=== PATIENT | male | born 1955 | race Caucasian/White ===

== ENCOUNTER 2022-01-19 06:27 | Day surgery (SDC) | payer MEDICARE ==
[2022-01-17 10:23] LABS: BASOPHILS % (AUTO) 0.8 % (0.0-5.0); EOSINOPHILS % (AUTO) 4.3 % (0.0-8.0); HEMATOCRIT 47.8 % (42-54); LYMPHOCYTES % (AUTO) 16.2 % (21.0-51.0); MEAN CORPUSCULAR HEMOGLOBIN 28.2 pg (27.0-33.0); MEAN CORPUSCULAR HGB CONC 31.6 g/dL (32.0-36.0); MEAN CORPUSCULAR VOLUME 89.3 fL (79-99); MONOCYTES % (AUTO) 8.9 % (3.0-13.0); NEUTROPHILS % (AUTO) 69.4 % (40.0-77.0); PLATELET COUNT (AUTO) 261 K/uL (130-400); RED BLOOD CELL COUNT(AUTO) 5.35 MIL/uL (4.50-6.20); RED CELL DISTRIBUTION WIDTH 13.9 % (11.0-15.5); WHITE BLOOD COUNT (AUTO) 9.8 K/uL (4.8-10.8)
[2022-01-17 10:33] LABS: POTASSIUM 5.3 mmol/L (3.5-5.1)
[2022-01-18 09:41] VITALS: BP 124/73
[2022-01-19] VITALS (13 sets, daily range): BP systolic 109–136; BP diastolic 55–81
[~2022-01-19] VITALS: Ht 182.9 cm; Wt 91.9 kg
[2022-01-19] MEDS: CEFAZOLIN SODIUM 1 GM VIAL IVP SCH ×2 (06:00→08:50)
[~2022-01-19 06:27] MED LIST: IBUP-2070 PO; MULT-1289 PO
[2022-01-19] MEDS ORDERED: LACTATED RINGERS 1000ML 1,000 ML IV ONE ×2 (06:52→07:10)
[2022-01-19] MEDS ORDERED: IOPAMIDOL 10 ML VIAL ONE (07:30)
[2022-01-19] MEDS ORDERED: BUPIVACAINE/PF 0.25% 30ML VIAL IJ ONE (08:05)
[2022-01-19] MEDS ORDERED: FENTANYL CITRATE PF 50 MCG/1 ML 2ML VIAL ONE (08:46)
[2022-01-19] MEDS ORDERED: MIDAZOLAM HCL 1 MG/ML 2ML VIAL ONE (08:47)
[2022-01-19] MEDS ORDERED: PROPOFOL 10 MG/ML 20ML VIAL IV ONE (08:50)
== END 2022-01-19 10:30 | disposition home or self-care (01) ==
LOC: DAH 06:27
PROVIDERS: ATTEND Orthopaedic Surgery
DX: M16.12 Unilateral primary osteoarthritis, left hip (principal); G89.29 Other chronic pain; Z79.899 Other long term (current) drug therapy; Z20.822 Contact with and (suspected) exposure to COVID-19
CPT/HCPCS: 20610; 36415; 73503; 77002; 80048; 85025; 87635; A4215; A4221; A4222; A4223; A4663; A5120; C9803; J0690; J1030; J2250; J2704; J3010; J3490; J7120 ×2; Q9966

== ENCOUNTER 2022-04-28 05:34 | Day surgery (SDC) | payer MEDICARE ==
[2022-04-27 10:49] LABS: BASOPHILS % (AUTO) 1.5 % (0.0-5.0); EOSINOPHILS % (AUTO) 7.1 % (0.0-8.0); HEMATOCRIT 44.4 % (42-54); LYMPHOCYTES % (AUTO) 28.8 % (21.0-51.0); MEAN CORPUSCULAR HEMOGLOBIN 28.8 pg (27.0-33.0); MEAN CORPUSCULAR HGB CONC 32.2 g/dL (32.0-36.0); MEAN CORPUSCULAR VOLUME 89.5 fL (79-99); MONOCYTES % (AUTO) 10.5 % (3.0-13.0); NEUTROPHILS % (AUTO) 51.7 % (40.0-77.0); PLATELET COUNT (AUTO) 253 K/uL (130-400); RED BLOOD CELL COUNT(AUTO) 4.96 MIL/uL (4.50-6.20); RED CELL DISTRIBUTION WIDTH 13.9 % (11.0-15.5); WHITE BLOOD COUNT (AUTO) 5.4 K/uL (4.8-10.8)
[2022-04-27 10:55] LABS: CARBON DIOXIDE 31 mmol/L (21-32); CHLORIDE 100 mmol/L (101-111); GLOMERULAR FILTR. RATE CALC 79 mL/min (>60); GLUCOSE,RANDOM 86 mg/dL (70-105); POTASSIUM 4.3 mmol/L (3.5-5.1); SODIUM SERUM 136 mmol/L (136-145); UREA NITROGEN, BLOOD 19 mg/dL (7-18)
[2022-04-27 10:58] LABS: CRP QUANTITATIVE < 2.00 mg/L (0.00-9.0)
[2022-04-27 12:06] VITALS: BP 140/75
[2022-04-28] VITALS (11 sets, daily range): BP systolic 127–141; BP diastolic 62–88
[~2022-04-28] VITALS: Ht 182.9 cm; Wt 93.9 kg
[2022-04-28] MEDS ORDERED: LACTATED RINGERS 1000ML 1,000 ML IV ONE (06:18)
[2022-04-28] MEDS ORDERED: CEFAZOLIN SODIUM 1 GM VIAL ONE (06:19)
[2022-04-28] MEDS ORDERED: MIDAZOLAM HCL 1 MG/ML 2ML VIAL ONE (07:04)
[2022-04-28] MEDS ORDERED: PROPOFOL 10 MG/ML 20ML VIAL IV ONE (07:04)
[2022-04-28] MEDS ORDERED: FENTANYL CITRATE PF 50 MCG/1 ML 2ML VIAL ONE (07:05)
[2022-04-28] MEDS ORDERED: LIDOCAINE HCL 1% 20 ML VIAL ONE (07:06)
[2022-04-28] MEDS ORDERED: BUPIVACAINE/PF 0.5% 30ML VIAL ONE (07:06)
[2022-04-28] MEDS ORDERED: GLYCOPYRROLATE 1 MG/5 ML SYRINGE ONE (07:52)
[2022-04-28] MEDS ORDERED: IOPAMIDOL 10 ML VIAL ONE (07:56)
== END 2022-04-28 09:30 ==
LOC: DAH 05:34
PROVIDERS: ATTEND Student in an Organized Health Care Education/Training Program
DX: M16.12 Unilateral primary osteoarthritis, left hip (principal); G89.29 Other chronic pain; Z79.899 Other long term (current) drug therapy; Z20.822 Contact with and (suspected) exposure to COVID-19
CPT/HCPCS: 87426; 82040; 80048; 85025; 84134; 86140; 36415; 93005; 20610; 77002; 73503; J7120; J3010; J0690; J3490 ×2; J2250; J2704; J1030; Q9966; A5120; A4215; A4223; A4222; A4221; A4663

== ENCOUNTER 2024-09-11 11:00 | Observation (INO) | payer MEDICARE ==
[~2024-09-11] VITALS: Ht 182.9 cm; Wt 92.5 kg
[2024-09-11 12:28] LABS: BASOPHILS # (AUTO) 0.09 K/uL (0.00-0.20); BASOPHILS % (AUTO) 1.5 % (0.0-5.0); EOSINOPHILS # (AUTO) 0.33 K/uL (0.00-0.70); EOSINOPHILS % (AUTO) 5.7 % (0.0-8.0); HEMATOCRIT 46.2 % (42-54); IMMATURE GRANULOCYTE ABSOLUTE 0.01 K/uL (0-1); LYMPHOCYTES # (AUTO) 1.6 K/uL (1.0-4.8); MEAN CORPUSCULAR HEMOGLOBIN 29.4 pg (27.0-33.0); MEAN CORPUSCULAR VOLUME 91.7 fL (79-99); MONOCYTES # (AUTO) 0.5 K/uL (0.1-1.0); NEUTROPHILS # (AUTO) 3.3 K/uL (1.8-7.7); NEUTROPHILS % (AUTO) 56.6 % (40.0-77.0); PLATELET COUNT (AUTO) 241 K/uL (130-400); RED BLOOD CELL COUNT(AUTO) 5.04 MIL/uL (4.50-6.20); RED CELL DISTRIBUTION WIDTH 13.5 % (11.0-15.5); WHITE BLOOD COUNT (AUTO) 5.8 K/uL (4.8-10.8)
[2024-09-11 12:35] LABS: POTASSIUM 5.1 mmol/L (3.5-5.1)
[2024-09-11 12:39] LABS: INR <= 0.93 (0.85-1.15); PROTHROMBIN TIME 10.3 SEC (9.6-11.6)
[2024-09-11 12:40] LABS: PARTIAL THROMBOPLASTIN TIME 28.4 SEC (26.3-35.5)
[2024-09-11 12:41] VITALS: BP 164/81; PULSE 60; RESP 16; TEMP 97.2
[2024-09-11] MEDS ORDERED: advil PO (12:42)
[2024-09-16] VITALS (25 sets, daily range): BP systolic 71–139; BP diastolic 37–82; PULSE 60–91; RESP 15–19; TEMP 96.4–98.4; O2SAT 95
[2024-09-16] MEDS: ceFAZolin SODIUM 2 GM VIAL ONE (10:03)
[2024-09-16] MEDS: LACTATED RINGERS 1000ML 1,000 ML IV ONE (10:03)
[2024-09-16] MEDS: VANCOMYCIN 500MG VIAL IJ SCH (12:00)
[2024-09-16] MEDS ORDERED: LIDOCAINE HCL-MPF 1% 5ML AMP IJ ONE (12:11)
[2024-09-16] MEDS ORDERED: proPOFol 10 MG/ML 20ML VIAL IV ONE (12:12)
[2024-09-16] MEDS ORDERED: MIDAZOLAM HCL 1 MG/ML 2ML VIAL ONE (12:12)
[2024-09-16] MEDS ORDERED: FENTanyl CITRate PF 50 MCG/1 ML 2ML VIAL ONE ×2 (12:12→13:35)
[2024-09-16] MEDS ORDERED: rocuRONium bROMide 10MG/1ML 5ML VL ONE (12:12)
[2024-09-16] MEDS ORDERED: NEOSTIGMINE METHYLSULFATE 1MG/ML IV ONE (12:14)
[2024-09-16] MEDS ORDERED: dexaMETHasone SOD PHOSPHATE 4 MG/ML 1ML VIAL ONE (12:14)
[2024-09-16] MEDS ORDERED: GLYCOPYRROLATE 0.2 MG/ML 5 ML VIAL ONE (12:14)
[2024-09-16] MEDS ORDERED: phenylEPHRINE HCL 10 MG/ML 1ML VIAL IV ONE (12:14)
[2024-09-16] MEDS ORDERED: ondanSETRON 4MG INJ ONE ×2 (12:15→13:20)
[2024-09-16] MEDS ORDERED: ROPivacaine 0.5% 5MG/ML 30ML ONE (12:16)
[2024-09-16] MEDS: TRANEXAMIC ACID 1000MG/10ML ONE ×2 (12:45→16:36)
[2024-09-16] MEDS ORDERED: ePHEDrine SULFate 50 MG/ML AMPULE ONE (13:26)
[2024-09-16] MEDS: ceFAZolin SODIUM 1 GM VIAL ONE (13:35)
[2024-09-16] MEDS ORDERED: ondanSETRON 4MG INJ IVP PRN (16:00)
[2024-09-16] MEDS ORDERED: traMADol HCL 50 MG TABLET PO PRN (16:00)
[2024-09-16] MEDS ORDERED: PoTASSium chloRIDE 20MEQ/100ML 100 ML IV PRN (16:00)
[2024-09-16] MEDS: 0.9%NACL 1000ML 1,000 ML IV SCH (16:00)
[2024-09-16] MEDS ORDERED: FERROUS FUMARATE 324 MG TABLET PO PRN (16:00)
[2024-09-16] MEDS ORDERED: PoTASSium chl 10% ELIXIR 20MEQ 20 MEQ/15 ML UDCUP PO PRN (16:00)
[2024-09-16] MEDS ORDERED: TEMAZepam 15 MG CAPSULE PO PRN (16:00)
[2024-09-16] MEDS ORDERED: PoTASSium chloRIDE 20MEQ ER 20 MEQ ERTAB PO PRN (16:00)
[2024-09-16] MEDS ORDERED: DiphenhydrAMINE HCL 50 MG/ML VIAL IVP PRN (16:00)
[2024-09-16] MEDS ORDERED: CALCIUM CARB 500MG PO PRN (16:00)
--- NOTE | 2024-09-16 16:11 | HMCIMG ---
HIP UNILAT 4VW LEFT REASON: ORIF LEFT SKYLA, SX. COMPARISON: None TECHNIQUE: Fluoroscopic images of left hip were obtained. FINDINGS: Please see procedure report by referring physician. IMPRESSION: Intraoperative films.
[2024-09-16] MEDS: MEPERIDINE-PF 25 MG/ML SYG ONE (16:44)
--- NOTE | 2024-09-16 17:30 | NUR ---
PATIENT ADMITTED TO UNIT. AWAKE AND ALERT. NO S/S OF DISTRESS NOTED. SX DRESSING IN PLACE AND INTACT. SCD'S APPLIED ORDERED POST OP VITALS INITIATED. PATIENT EDUCATED ON I.S.
--- NOTE | 2024-09-16 19:37 | OP ---
Operative Note: DATE OF PROCEDURE: 09/16/24 SURGEON: SARIAH WIGGINS MD LABORER CHEMICAL PROCESSING: [Karina Beverly CFA] ANESTHESIA: [General anesthesia plus regional block] ANESTHESIOLOGIST/RECEIVING TANK OPERATOR: [Bubba Cleary CRNA] PREOPERATIVE DIAGNOSIS: [Left hip osteoarthritis] POSTOPERATIVE DIAGNOSIS: [Left hip osteoarthritis] IMPLANTS: [BIOMET. Femoral stem taper lock standard offset size 12 mm. Femoral head size 36 mm plus three. Acetabulum G7 size 60 mm. Acetabular liner 36 mm high wall.] PROCEDURE: [Left total hip replacement] ESTIMATED BLOOD LOSS: [300 mL] INDICATIONS: [The patient is a very healthy 69-year-old male with history of pain to the left hip secondary to osteoarthritis. The patient is extremely active and wishes to proceed with a total hip arthroplasty after failing conservative treatment. The patient is brought to the operating room for a left total hip arthroplasty, procedure that he understood as well as the risks involved, benefits and possible complications and agreed signed the consent form] DESCRIPTION OF PROCEDURE: [After adequate general anesthesia was achieved and regional block obtained the patient was placed in the lateral decubitus with the use of the beanbag and hip holders. The left lower extremity was prepped and draped in the usual manner after x-rays taken with the C-arm were used to check the position of the pelvis. After anatomic landmarks were identified we proceeded to make an incision in the skin centered on the greater trochanter and with a slight curve posteriorly followed by dissection of the subcutaneous tissue with the use of the Bovie cautery. The tensor fascia sam and gluteus wes fascia were then opened longitudinally and the fibers of the gluteus muscle were split manually entering into the deep space applying then the Charnley retractor. At this point we proceeded to apply a bone infusion needle into the greater trochanter area and we injected 500 mg of vancomycin in 50 mL of normal saline into the proximal femur. The bone needle was then removed. The posterior border of the gluteus medius was identified and elevated and a curved Hohmann retractor was inserted underneath to be able to expose the gluteus minimus and short external rotators. The interval between the piriformis and gluteus minimus was open with the use of the Bovie cautery and then the rotators and capsule were detached from their femoral neck insertion and retracted posteriorly entering into the hip joint. At this point a marker was applied in the iliac bone just superior to the acetabulum with the use of drill guide to be able to check the offset and the length of the extremity at the level of the trochanter. Once the marker was made this was passed to the back table. We then proceeded to dislocate the hip by flexing the hip and then internally rotating it and after retractors were applied to the base of the femoral neck we proceeded to use the oscillating saw to cut the neck at this level. We then proceeded to use a box osteotome to enter the canal followed by insertion of the canal finder and then we proceeded to broach from size 4 up to above-mentioned size. At this point we removed the last broach and packed the canal for hemostasis and after the retractors were removed we proceeded then to bring the hip into extension. Hohmann retractors were then applied anteriorly and posteriorly to the acetabulum removing then the labrum and foveal tissue. We proceeded to ream the acetabulum medializing it obtaining adequate cortico- cancellous bone. After irrigation was of the acetabulum was completed we proceeded then to apply the final component and x-rays were taken correcting the orientation of the acetabulum to its final position. Then a trial liner was inserted as well as a trial femur and then we proceeded to apply the trial femoral heads reducing the hip and taken x-rays until we identify the adequate size component using the marker to check the length and offset as well as clinically using the shuck test and measuring the leg length. Once we were satisfied we proceeded to remove the components from the femur and the trial liner after dislocating the hip and after copious irrigation of the joint was completed we then proceeded to apply the final liner followed by the insertion of the final femoral stem femoral head. Once the hip was reduced we used a marker once again and the leg length and offset were normal and clinically the patient had normal length, negative shuck test and x-rays reveal adequate leg length compared to the opposite hip. The joint was then copiously irrigated with a diluted Betadine solution followed by irrigation with antibiotic solution with jet lavage once again and we then proceeded to take final x-rays and then to close the wound first with approximation of the capsule with #1 Vicryl simple stitches followed by approximation of the short external rotators with #2 PDS suture passing the sutures through the bone. The Charnley retractor was then removed and the gluteus wes fascia was closed with a #1 Vicryl running stitch and the tensor fascia sam with #1 Vicryl crossed stitches. The subcutaneous tissue was closed with #2 Monocryl inverted stitches and the skin was closed with 3-0 Monocryl subcuticularly. A suction dressing was then applied to the incision and the drapes were then removed the patient being placed in the supine position. Leg length was checked and noted to be adequate. The patient was then transferred to a hospital bed and taken to recovery room for follow-up by anesthesia. There were no complications during the procedure.] SARIAH WIGGINS MD Sep 16, 2024 19:37
[2024-09-16] MEDS: FAMOTIDINE 20MG TAB PO SCH (20:21)
[2024-09-16] MEDS: ceFAZolin SODIUM 2 GM VIAL IVP SCH (20:21)
[2024-09-16] MEDS: ASPIRIN 81 MG EC TAB PO SCH (20:21)
[2024-09-16] MEDS: CeleCOXib 200 MG CAP PO SCH (20:21)
[2024-09-16] MEDS: HYDROcodone/APAP 5/325 1 TAB TABLET PO PRN (20:50)
[2024-09-17 04:00] VITALS: BP 112/68; PULSE 69; RESP 18; TEMP 98
[2024-09-17 04:54] LABS: HEMATOCRIT 37.5 % (42-54); MEAN CORPUSCULAR HEMOGLOBIN 29.4 pg (27.0-33.0); MEAN CORPUSCULAR HGB CONC 32.5 g/dL (32.0-36.0); MEAN CORPUSCULAR VOLUME 90.4 fL (79-99); RED BLOOD CELL COUNT(AUTO) 4.15 MIL/uL (4.50-6.20); RED CELL DISTRIBUTION WIDTH 13.7 % (11.0-15.5)
[2024-09-17 05:07] LABS: POTASSIUM 4.7 mmol/L (3.5-5.1)
[2024-09-17 07:45] VITALS: BP 98/57; PULSE 65; RESP 20; TEMP 97.9
[2024-09-17 08:00] VITALS: O2SAT 100
[2024-09-17] MEDS: polyETHYLene GLYCol 3350 17 GM POWD.PACK PO SCH (08:34)
[2024-09-17] MEDS: ketOROlac 15MG/ML VIAL (15MG/ML) IV PRN (08:41)
--- NOTE | 2024-09-17 09:43 | PN ---
Ortho postop day one. This morning patient is awake alert and oriented he is seated at the bedside in the chair resting comfortably reporting adequate pain control. Vital signs have remained stable. He has been afebrile. Laboratory results reviewed. Noted to have a drop in hemoglobin and hematocrit as expected after total hip arthroplasty. Patient is asymptomatic and we will address per protocol as necessary. Voiding on his own without difficulty. Operative findings discussed with the patient. Instructed on an incentive spirometry and returned demonstration adequate. Dressing is intact. No obvious leg-length discrepancy. The gastrocnemius a soft nontender. Distal neurovascular exam normal. Patient did not ambulate yesterday but is pending ambulation this morning. Patient is anticipating going home with a Home Health. I have discussed with the patient we will depend on his progress with physical therapy today and he agrees. Assessment: Status post left total hip arthroplasty. Asymptomatic acute postoperative blood loss anemia. Plan: Continue with Dr. Booker was total hip arthroplasty protocol and discharge planning. Asymptomatic acute postoperative blood loss anemia addressed with the protocol as necessary Vitals/Labs Vital Signs Date Time Temp Pulse Resp B/P (MAP) Pulse Ox O2 Delivery O2 Flow Rate FiO2 09/17/24 08:00 100 Nasal Cannula* 2 28 09/17/24 07:45 97.9 65 20 98/57 Laboratory Tests 09/17/24 04:36 Medications Current Medications Cefazolin Sodium 2 gm STK-MED ONCE .ROUTE Last administered on 09/16/24at 12:40; Start 09/16/24 at 09:43; Stop 09/16/24 at 09:43; Status DC Lactated Ringer's 1,000 ml @ As Directed STK-MED ONCE IV Last administered on 09/16/24at 10:03; Start 09/16/24 at 09:43; Stop 09/16/24 at 09:43; Status DC Vancomycin HCl 500 mg ONCALL IJ Last administered on 09/16/24at 13:35; Start 09/16/24 at 12:00; Stop 09/16/24 at 16:00; Status DC Cefazolin Sodium 1 gm STK-MED ONCE .ROUTE Last administered on 09/16/24at 13:35; Start 09/16/24 at 11:48; Stop 09/16/24 at 11:48; Status DC Tranexamic Acid 1,000 mg STK-MED ONCE .ROUTE Last administered on 09/16/24at 12:45; Start 09/16/24 at 11:49; Stop 09/16/24 at 11:50; Status DC Lidocaine HCl 5 ml STK-MED ONCE IJ; Start 09/16/24 at 12:11; Stop 09/16/24 at 12:12; Status DC Midazolam HCl 2 mg STK-MED ONCE .ROUTE; Start 09/16/24 at 12:12; Stop 09/16/24 at 12:12; Status DC Propofol 200 mg STK-MED ONCE IV; Start 09/16/24 at 12:12; Stop 09/16/24 at 12:12; Status DC Rocuronium [place] 50 mg STK-MED ONCE .ROUTE; Start 09/16/24 at 12:12; Stop 09/16/24 at 12:12; Status DC Fentanyl Citrate 100 mcg STK-MED ONCE .ROUTE; Start 09/16/24 at 12:12; Stop 09/16/24 at 12:13; Status DC Dexamethasone Sodium Phosphate 4 mg STK-MED ONCE .ROUTE; Start 09/16/24 at 12:14; Stop 09/16/24 at 12:14; Status DC Glycopyrrolate 1 mg STK-MED ONCE .ROUTE; Start 09/16/24 at 12:14; Stop 09/16/24 at 12:14; Status DC Neostigmine Methylsulfate 10 mg STK-MED ONCE IV; Start 09/16/24 at 12:14; Stop 09/16/24 at 12:14; Status DC Phenylephrine HCl 10 mg STK-MED ONCE IV; Start 09/16/24 at 12:14; Stop 09/16/24 at 12:15; Status DC Ondansetron HCl 4 mg STK-MED ONCE .ROUTE; Start 09/16/24 at 12:15; Stop 09/16/24 at 12:15; Status DC Ropivacaine 150 mg STK-MED ONCE .ROUTE; Start 09/16/24 at 12:16; Stop 09/16/24 at 12:16; Status DC Ondansetron HCl 4 mg STK-MED ONCE .ROUTE; Start 09/16/24 at 13:20; Stop 09/16/24 at 13:24; Status DC Ephedrine Sulfate 50 mg STK-MED ONCE .ROUTE; Start 09/16/24 at 13:26; Stop 09/16/24 at 13:26; Status DC Fentanyl Citrate 100 mcg STK-MED ONCE .ROUTE; Start 09/16/24 at 13:35; Stop 09/16/24 at 13:35; Status DC Sodium Chloride 1,000 ml @ 100 mls/hr Q10H IV Last administered on 09/17/24at 04:21; Start 09/16/24 at 16:00; Stop 09/17/24 at 15:59 Polyethylene Glycol 17 gm DAILY PO; Start 09/17/24 at 09:00; Stop 10/17/24 at 08:59 Bisacodyl 10 mg DAILY PRN RC; Start 09/19/24 at 16:00; Stop 10/19/24 at 15:59 Ketorolac Tromethamine 15 mg Q6H PRN IV Last administered on 09/17/24at 08:41; Start 09/16/24 at 16:00; Stop 09/21/24 at 15:59 Famotidine 20 mg BID PO Last administered on 09/17/24at 08:29; Start 09/16/24 at 21:00; Stop 10/16/24 at 20:59 Ferrous Fumarate 324 mg DAILY PRN PO; Start 09/16/24 at 16:00; Stop 10/16/24 at 15:59 Temazepam 15 mg HS PRN PO; Start 09/16/24 at 16:00; Stop 10/16/24 at 15:59 Calcium Carbonate 500 mg Q12H PRN PO; Start 09/16/24 at 16:00; Stop 10/16/24 at 15:59 Diphenhydramine HCl 25 mg Q6H PRN IVP; Start 09/16/24 at 16:00; Stop 10/16/24 at 15:59 Ondansetron HCl 4 mg Q6H PRN IVP; Start 09/16/24 at 16:00; Stop 10/16/24 at 15:59 Cefazolin Sodium 2 gm Q8H IVP Last administered on 09/17/24at 05:53; Start 09/16/24 at 21:00; Stop 09/17/24 at 05:01; Status DC Potassium Chloride 100 ml @ 100 mls/hr AD PRN IV; Start 09/16/24 at 16:00; Stop 10/16/24 at 15:59 Potassium Chloride 20 meq AD PRN PO; Start 09/16/24 at 16:00; Stop 10/16/24 at 15:59 Potassium Chloride 20 meq AD PRN PO; Start 09/16/24 at 16:00; Stop 10/16/24 at 15:59 Celecoxib 200 mg BID PO Last administered on 09/17/24at 08:29; Start 09/16/24 at 21:00; Stop 10/16/24 at 20:59 Tramadol HCl 50 mg Q6H PRN PO; Start 09/16/24 at 16:00; Stop 09/21/24 at 15:59 Acetaminophen/ Hydrocodone Bitart Q4H PRN PO Last administered on 09/17/24at 05:54; Start 09/16/24 at 16:00; Stop 09/21/24 at 15:59 Aspirin 81 mg BID PO Last administered on 09/17/24at 08:29; Start 09/16/24 at 21:00; Stop 10/16/24 at 20:59 Tranexamic Acid 1,000 mg STK-MED ONCE .ROUTE Last administered on 09/16/24at 16:36; Start 09/16/24 at 16:32; Stop 09/16/24 at 16:32; Status DC Meperidine HCl 25 mg STK-MED ONCE .ROUTE Last administered on 09/16/24at 16:44; Start 09/16/24 at 16:41; Stop 09/16/24 at 16:41; Status DC LISS TY NP Sep 17, 2024 09:43
[2024-09-17 11:53] VITALS: BP 127/49; PULSE 66; RESP 20; TEMP 98.2
[2024-09-17 15:15] VITALS: BP 124/64; PULSE 73; RESP 17; TEMP 97.8
[2024-09-17 20:00] VITALS: BP 118/65; PULSE 65; RESP 20; TEMP 97.6
[2024-09-18] VITALS: BP 118/61; PULSE 59; RESP 20; TEMP 98.1
[2024-09-18 04:22] VITALS: BP 119/65; PULSE 62; RESP 20; TEMP 97.8
[2024-09-18 08:00] VITALS: BP 115/61; PULSE 69; RESP 18; TEMP 98.7; O2SAT 98
--- NOTE | 2024-09-18 08:11 | DS ---
DISCHARGE SUMMARY [Date of admission: 09/16/2024 Date of discharge: 09/18/2024 Final diagnosis: Left hip osteoarthritis Surgical procedures: Left total hip arthroplasty on 09/16/2024 Summary of History and Physical: The patient is a 69 year-old male with history of severe arthrosis to the left hip that has been present for several years and has been treated conservatively with no longer adequate response to treatment. The patient is being admitted for total hip arthroplasty. Previous medical history: Hypertension Previous surgical history: Please see H&P and admission Family history: Not relevant Social history: Negative for use of tobacco or alcohol. Allergies: NKDA. Review of system: Negative on admission Hospital course: The patient was admitted and taken to the operating room for a total hip arthroplasty, procedure that went uneventful. Postoperatively the patient remained hemodynamically stable and afebrile. The patient received antibiotic and anticoagulation prophylaxis as per protocol. The patient was evaluated by physical therapy and started rehabilitation treatment with ambulation with the use of walker, weightbearing as tolerated, hip precautions, range of motion exercises and bed transfers. The patient was also evaluated by case management and arrangements were made for discharge . The patient tolerated diet well. On postop day #2 all the arrangements were completed. The dressing was changed and the wound was noted to be stable and the patient was dismissed . Condition on discharge: Good Disposition: The patient will be dismissed home with home health. Follow-up will be done at the office in 3 weeks. The patient is to continue with physical therapy and rehabilitation at home and be ambulatory with the use of a walker, weightbearing as tolerated and continue with hip precautions. Continue taking pain medication as instructed as well as anticoagulation prophylaxis. Continue with home medications also as instructed and continue with pre admission diet.] SARIAH WIGGINS MD] SARIAH WIGGINS MD Sep 18, 2024 08:11
[2024-09-18 12:02] VITALS: BP 121/62; PULSE 74; RESP 18; TEMP 98.4
[2024-09-18] MEDS ORDERED: HYDR-4060 PO (12:54)
[2024-09-18] MEDS ORDERED: AEC81 PO (12:54)
--- NOTE | 2024-09-18 14:21 | NUR ---
discharged printed discharge paperwork given to patient, educated patient and family regarding diet, activity, medication, follow up visits, and signs and symptoms to report/return to ER for. Answered pt questions, patient and family understood. Gave report to home health nurse, NELSON Edwards with [facility].
[2024-09-19] MEDS ORDERED: BisaCODYL 10 MG SUPP.RECT RC PRN (16:00)
== END 2024-09-18 14:25 | disposition home health service (06) ==
LOC: DAHIP 09-16 08:45 → 4BH 09-16 17:30
PROVIDERS: ADMIT Orthopaedic Surgery; ATTEND Orthopaedic Surgery
DX: M16.12 Unilateral primary osteoarthritis, left hip (principal); G89.18 Other acute postprocedural pain; D62 Acute posthemorrhagic anemia; I10 Essential (primary) hypertension; Z79.899 Other long term (current) drug therapy
CPT/HCPCS: 80048 ×2; 85025; 85610; 85730; 36415 ×2; 87641; 64447; 27130; 96374; 88311; 88304; 73503; 97161; 97530 ×5; 96376; 96375; 85027; 97116 ×4; J1100; G0378 ×43; A4600; A4223 ×2; A4663; J7120 ×2; J3010 ×2; J0690 ×4; J3490 ×6; J2250; J2704; J2405 ×2; J2710; J2175; J2795; J2371; A4649 ×4; A9272; C1776; A5120; A4215; A4222; A4221; A4216; J1885; G0379